=== PATIENT | male | born 1980 | race African-American/Black ===

== ENCOUNTER 2023-06-03 11:19 | Emergency (ER) | payer MEDICAID, OTHER ==
[~2023-06-03] VITALS: Ht 175.3 cm; Wt 68.0 kg
[2023-06-03 11:35] VITALS: TEMP 98.7; O2SAT 96
[2023-06-03 12:30] LABS: BASOPHILS % 1.1 % (0.0-2.0); DIFFERENTIAL COMMENT 0; EOSINOPHILS % 0.5 % (0.0-5.0); HEMATOCRIT. 45.9 % (42.0-52.0); HEMOGLOBIN. 15.8 g/dL (14.0-18.0); LYMPHOCYTES % 23.3 % (20.0-50.0); MEAN CORPUSCULAR HEMOGLOBIN 34.5 pg (28.0-32.0); MEAN CORPUSCULAR HGB CONC 34.4 g/dL (31.0-37.0); MEAN CORPUSCULAR VOLUME 100.3 fL (80.0-94.0); MEAN PLATELET VOLUME 8.3 fl (7.4-10.4); MONOCYTES % 8.5 % (2.0-8.0); NEUTROPHILS % 66.6 % (40.0-76.0); PLATELET 140 x1000/uL (130-400); RED BLOOD CELL COUNT 4.57 mill/uL (4.7-6.1); WHITE BLOOD COUNT 3.7 x1000/uL (4.5-11.0)
[2023-06-03 12:35] LABS: ALANINE AMINOTRANSFERASE 21 IU/L (10-49); ALBUMIN 4.1 g/dL (3.2-4.8); ASPARTATE AMINOTRANSFERASE 46 IU/L (<34); CALCIUM 9.3 mg/dL (8.7-10.4); CARBON DIOXIDE 23 mEq/L (21-32); CHLORIDE 103 mEq/L (98-107); CREATININE 0.9 mg/dL (0.6-1.3); GLUCOSE 85 mg/dL (70-105); POTASSIUM 4.1 mEq/L (3.5-5.1); PROTEIN TOTAL 7.6 g/dL (6.0-8.3); SODIUM 136 mEq/L (136-145); TROPONIN I HIGH SENSITIVITY 4 ng/L (3.0-53); UREA NITROGEN BLOOD 11 mg/dL (9-23)
[2023-06-03] MEDS ORDERED: KETOROLAC 60MG/2ML VIAL IM ONE (14:15)
[2023-06-03 14:54] LABS: TROPONIN I HIGH SENSITIVITY 4 ng/L (3.0-53)
[2023-06-03] MEDS ORDERED: NAPR-681 MT (15:29)
[2023-06-03 15:58] VITALS: BP 122/87; PULSE 90; RESP 16
[2023-06-03] MEDS ORDERED: KETOROLAC 60MG/2ML VIAL IM NR (16:00)
== END 2023-06-03 16:01 | disposition home or self-care (01) ==
LOC: ER 11:19
DX: M79.602 Pain in left arm (principal); R07.89 Other chest pain
CPT/HCPCS: 99285; 71045; 80053; 83880; 85025; 84484; 36415; 93005; 96372; J1885